=== PATIENT | male | born 1950 | race Caucasian/White ===

== ENCOUNTER 2017-03-20 07:02 | Inpatient (IN) | payer OTHER ==
[2017-03-20 08:08] LABS: ADD MAN DIFF? NO
[2017-03-20 08:11] LABS: WHITE BLOOD COUNT 11.4 10^3/ul (4.8-10.8)
[2017-03-20 08:11] LABS: BASOPHILS % 0.4 % (0.0-2.0); EOSINOPHILS # 0.5 10^3/ul (0.0-0.5); HEMATOCRIT 41.8 % (42.0-52.0); HEMOGLOBIN 13.9 g/dl (14.0-18.0); LYMPHOCYTES # 3.2 10^3/ul (0.8-2.9); LYMPHOCYTES % 27.9 % (15.0-51.0); MEAN CORPUSCULAR HEMOGLOBIN 30.9 pg (29.0-33.0); MEAN CORPUSCULAR HGB CONC 33.3 g/dl (32.0-37.0); MEAN CORPUSCULAR VOLUME 92.9 fl (82.0-101.0); MEAN PLATELET VOLUME 10.4 fl (7.4-10.4); MONOCYTE # 0.8 10^3/ul (0.3-0.9); MONOCYTES % 6.8 % (0.0-11.0); NEUTROPHIL # 6.9 10^3/ul (1.6-7.5); NEUTROPHILS % 60.5 % (39.0-77.0); PLATELET COUNT 271 10^3/UL (140-415); RED CELL DISTRIBUTION WIDTH 13.8 % (11.5-14.5)
[2017-03-20 08:43] LABS: PROTIME 14.4 Sec (11.9-14.9); PT RATIO 1.1
[2017-03-20 08:44] LABS: PARTIAL THROMBOPLASTIN TIME 30.9 Sec (25.0-35.0)
[2017-03-20 09:00] LABS: ALANINE AMINOTRANSFERASE 33 IU/L (13-69); ALBUMIN 4.2 g/dl (3.3-4.9); ALBUMIN/GLOBULIN RATIO 1.35; ALKALINE PHOSPHATASE 113 IU/L (42-121); ANION GAP 15 (8-16); ASPARTATE AMINO TRANSFERASE 25 IU/L (15-46); BILIRUBIN,INDIRECT 0.5 mg/dl (0-1.1); BILIRUBIN,TOTAL 0.5 mg/dl (0.2-1.3); CARBON DIOXIDE 26 mmol/L (21-31); CHLORIDE 104 mmol/L (97-110); CHOL/HDL RATIO 6.9 RATIO; CHOLESTEROL 243 mg/dl (100-200); GLUCOSE 252 mg/dl (70-220); HDL CHOLESTEROL 35 mg/dl (30-78); LDL CHOLESTEROL,CALCULATED 177 mg/dl; TOTAL PROTEIN 7.3 g/dl (6.1-8.1); TRIGLYCERIDES 156 mg/dl (0-149)
[2017-03-20 09:01] LABS: BLOOD UREA NITROGEN 21 mg/dl (7-20); CALCIUM 9.8 mg/dl (8.4-10.2); CREATININE 0.83 mg/dl (0.61-1.24); POTASSIUM 4.4 mmol/L (3.5-5.1); SODIUM 141 mmol/L (135-144)
[2017-03-20] MEDS ORDERED: MIDAZOLAM 1 MG/ML 2 ML INJ (09:04)
[2017-03-20] MEDS ORDERED: FENTAnyl 50 MCG/ML VIAL (09:04)
[2017-03-20] MEDS ORDERED: LIDOCAINE 1% (MDV) 20 ML INJ (09:04)
[2017-03-20] MEDS ORDERED: NITROGLYCERIN (IC) 100 MCG/ML INJ ×2 (09:05→10:42)
[2017-03-20] MEDS ORDERED: HEPARIN 1000 UNITS/ML 10 ML INJ (09:05)
[2017-03-20] MEDS ORDERED: VERAPAMIL 5 MG INJ (09:05)
[2017-03-20] MEDS ORDERED: IODIXANOL LOCM 100 ML BTL (10:55)
[2017-03-20] MEDS ORDERED: IOHEXOL 350MG/ML 50 ML BTL (10:55)
[2017-03-20] MEDS ORDERED: ACETAMINOPHEN 325 MG TAB PO (11:00)
[2017-03-20] MEDS ORDERED: AL HYDROX/MG HYDROX/SIMETH 30 ML CUP PO (11:00)
[2017-03-20] MEDS ORDERED: ZOLPIDEM 5 MG TAB PO (11:00)
[2017-03-20] MEDS ORDERED: morphine 2 MG INJ IV (11:00)
[2017-03-20] MEDS ORDERED: OXYCODONE/ACETAMINOPHEN (5/325) TAB PO (11:00)
[2017-03-20] MEDS ORDERED: ONDANSETRON 4 MG INJ IV (11:00)
[2017-03-20] MEDS: SOD CHLORIDE 0.9% 1,000 ML IV (11:56)
[2017-03-20] MEDS ORDERED: ASPIRIN 325 MG TAB (12:34)
[2017-03-20] MEDS ORDERED: TICAGRELOR 90 MG TABLET (12:34)
[2017-03-20] MEDS: INSULIN ASPART [NOVOLOG] 3 ML PEN SC ×3 (12:54→20:54)
[2017-03-20] MEDS: ATORVASTATIN 10 MG TAB PO (20:52)
[2017-03-20] MEDS: carBAMAZepine (XR) 100 MG TABSR PO (20:52)
[2017-03-20] MEDS ORDERED: TICAGRELOR 90 MG TABLET PO (21:00)
[2017-03-20] MEDS ORDERED: carBAMAZepine (XR) 200 MG TABSR PO (21:00)
[2017-03-20] MEDS ORDERED: DEXTROSE 50% 50 ML SYRINGE IV ×2 (22:30)
[2017-03-20] MEDS ORDERED: GLUCOSE GEL 15 GRAM TUBE BUCCAL (22:30)
[2017-03-20] MEDS ORDERED: GLUCAGON 1 MG INJ IM (22:30)
[2017-03-20] MEDS ORDERED: GLUCOSE GEL 15 GRAM TUBE PO ×2 (22:30)
[2017-03-21 05:32] LABS: ADD MAN DIFF? NO
[2017-03-21] MEDS: PANTOPRAZOLE (EC) 40 MG TAB PO (05:34)
[2017-03-21 05:45] LABS: WHITE BLOOD COUNT 12.1 10^3/ul (4.8-10.8)
[2017-03-21 05:45] LABS: BASOPHILS % 0.2 % (0.0-2.0); EOSINOPHILS # 0.3 10^3/ul (0.0-0.5); EOSINOPHILS % 2.8 % (0.0-7.0); HEMATOCRIT 37.7 % (42.0-52.0); HEMOGLOBIN 12.7 g/dl (14.0-18.0); LYMPHOCYTES # 2.9 10^3/ul (0.8-2.9); LYMPHOCYTES % 24.4 % (15.0-51.0); MEAN CORPUSCULAR HEMOGLOBIN 30.8 pg (29.0-33.0); MEAN CORPUSCULAR HGB CONC 33.7 g/dl (32.0-37.0); MEAN CORPUSCULAR VOLUME 91.5 fl (82.0-101.0); MEAN PLATELET VOLUME 10.5 fl (7.4-10.4); MONOCYTE # 0.9 10^3/ul (0.3-0.9); MONOCYTES % 7.5 % (0.0-11.0); NEUTROPHIL # 7.8 10^3/ul (1.6-7.5); NEUTROPHILS % 64.8 % (39.0-77.0); PLATELET COUNT 266 10^3/UL (140-415); RED BLOOD COUNT 4.12 10^6/ul (4.70-6.10); RED CELL DISTRIBUTION WIDTH 13.5 % (11.5-14.5)
[2017-03-21 06:14] LABS: ANION GAP 13 (8-16); BLOOD UREA NITROGEN 16 mg/dl (7-20); CALCIUM 9.3 mg/dl (8.4-10.2); CARBON DIOXIDE 24 mmol/L (21-31); CHLORIDE 104 mmol/L (97-110); CHOL/HDL RATIO 6.9 RATIO; CHOLESTEROL 209 mg/dl (100-200); CREATINE KINASE 88 IU/L (23-200); CREATININE 0.82 mg/dl (0.61-1.24); GLUCOSE 237 mg/dl (70-220); HDL CHOLESTEROL 30 mg/dl (30-78); LDL CHOLESTEROL,CALCULATED 141 mg/dl; POTASSIUM 3.7 mmol/L (3.5-5.1); SODIUM 137 mmol/L (135-144); TRIGLYCERIDES 190 mg/dl (0-149)
[2017-03-21 06:21] LABS: CK INDEX 4.4; CK-MB 3.91 ng/ml (0.0-2.4)
[2017-03-21 06:22] LABS: TROPONIN-I 0.836 ng/ml (0.00-0.12)
[2017-03-21] MEDS: ASPIRIN 81 MG TAB PO (08:06)
[2017-03-21] MEDS: METOPROLOL (XL) 25 MG TAB PO (08:06)
[2017-03-21] MEDS: carBAMAZepine (XR) 100 MG TABSR PO (08:06)
[2017-03-21] MEDS: INSULIN ASPART [NOVOLOG] 3 ML PEN SC ×2 (08:09→11:30)
[2017-03-21] MEDS: INSULIN GLARGINE [LANtus] 3 ML PEN SC (08:10)
[2017-03-21] MEDS: CLOPIDOGREL 75 MG TAB PO (09:33)
[2017-03-21 12:28] LABS: HEMOGLOBIN A1C 9.7 % (0-5.9)
[2017-03-21] MEDS ORDERED: ATORVASTATIN 80 MG TAB PO (21:00)
[2017-03-22] MEDS ORDERED: CLOPIDOGREL 75 MG TAB PO (09:00)
== END 2017-03-21 15:50 | disposition home or self-care (01) | DRG 247 ==
LOC: SDS 07:02 → ICU 16:45 → SDS 21:46 → ICU 21:45
PROVIDERS: Internal Medicine
PROC: 027035Z Dilation of Coronary Artery, One Artery with Two Drug-eluting Intraluminal Devices, Percutaneous Approach (ICD-10-PCS; principal; 2017-03-20 09:00)
PROC: 4A023N7 Measurement of Cardiac Sampling and Pressure, Left Heart, Percutaneous Approach (ICD-10-PCS; 2017-03-20 09:00)
PROC: B2011ZZ Plain Radiography of Multiple Coronary Arteries using Low Osmolar Contrast (ICD-10-PCS; 2017-03-20 09:00)
DX: I25.10 Atherosclerotic heart disease of native coronary artery without angina pectoris (principal); I10 Essential (primary) hypertension; Z72.0 Tobacco use; E11.9 Type 2 diabetes mellitus without complications; E78.5 Hyperlipidemia, unspecified; Z79.4 Long term (current) use of insulin
CPT/HCPCS: 71045; 80048; 80053; 80061; 82550; 82553; 82962; 83036; 84484; 85025; 85610; 85730; 87081; 93005; 93458